=== PATIENT | male | born 1975 | race Caucasian/White ===

== ENCOUNTER 2016-08-19 20:09 | Emergency (ER) | payer OTHER ==
[~2016-08-19] VITALS: Ht 182.9 cm; Wt 81.6 kg
[2016-08-19] MEDS ORDERED: methylPREDNISolone SOD SUCC 125 MG/2 ML VL IV ONE (20:30)
[2016-08-19] MEDS ORDERED: ALBUTEROL SULF 2.5 MG/0.5ML(0.5%) NEB SOLN NEB ONE (20:30)
[2016-08-19] MEDS ORDERED: LORazepam 2MG/ML-1ML VIAL IV ONE (20:30)
[2016-08-19] MEDS ORDERED: IPRATROPIUM BROM 0.5 MG/2.5ML INH SOL NEB ONE (20:30)
[2016-08-19 22:49] VITALS: BP 136/84
== END 2016-08-19 23:12 | disposition home or self-care (01) ==
LOC: EDBD 20:09 → ER 20:16
DX: J45.909 Unspecified asthma, uncomplicated (principal); R07.9 Chest pain, unspecified
CPT/HCPCS: 71010; 93005; 94640; 94761; 96374; 96375; 99284; J2060; J2930